=== PATIENT | male | born 1945 | race Caucasian/White ===

== ENCOUNTER → 2018-04-02 | Outpatient (CLI) | payer MEDICARE, BC ==
[~2018-04-02] MED LIST: ATEN-104 PO; ATEN25TA PO; OXYC-302 PO
== END | disposition home or self-care (01) ==
LOC: STAR 09:05
PROVIDERS: ATTEND Student in an Organized Health Care Education/Training Program
DX: Z01.818 Encounter for other preprocedural examination (principal); N20.0 Calculus of kidney; R00.1 Bradycardia, unspecified
CPT/HCPCS: 93005

== ENCOUNTER 2018-04-14 06:56 | Day surgery (SDC) | payer MEDICARE, BC ==
[~2018-04-14] VITALS: Ht 185.4 cm; Wt 98.8 kg
[2018-04-14] MEDS ORDERED: LACTATED RINGERS 1,000 ML IV SCH (07:14)
[2018-04-14 07:39] VITALS: BP 139/83
[2018-04-14] MEDS ORDERED: FENTANYL PF 250 MCG/5ML ONE (08:57)
[2018-04-14] MEDS ORDERED: MIDAZOLAM 1 MG/ML, 2ML ONE (08:57)
[2018-04-14] MEDS ORDERED: CEFAZOLIN 1,000 MG ONE (09:02)
[2018-04-14] MEDS ORDERED: LIDOCAINE 2% 100MG/5ML SYRINGE ONE (09:42)
[2018-04-14] MEDS ORDERED: ONDANSETRON 2MG/ML, 2ML ONE (09:42)
[2018-04-14] MEDS ORDERED: ROCURONIUM 10MG/ML,5ML ONE (09:42)
[2018-04-14] MEDS ORDERED: DEXAMETHASONE 4 MG/ML, 1ML ONE (09:42)
[2018-04-14] MEDS ORDERED: PROPOFOL 10 MG/ML, 20ML ONE (09:42)
[2018-04-14] MEDS ORDERED: LABETALOL 5MG/ML, 20ML IV PRN (10:00)
[2018-04-14] MEDS ORDERED: OXYcodone 5 MG/5 ML ORAL.SOL UDC PO PRN (10:00)
[2018-04-14] MEDS ORDERED: ACETAMINOPHEN 325 MG TABLET PO PRN (10:00)
[2018-04-14] MEDS ORDERED: HYDROmorphone 1 MG/ML, 1ML IV PRN (10:00)
[2018-04-14] MEDS ORDERED: MEPERIDINE/PF 25MG/0.5ML IVPush PRN (10:00)
[2018-04-14] MEDS ORDERED: hydrALAzine 20 MG/ML, 1ML IV PRN (10:00)
[2018-04-14] MEDS ORDERED: FENTANYL PF 100 MCG/2ML IV PRN (10:00)
[2018-04-14] MEDS ORDERED: HALOPERIDOL 5 MG/ML IV PRN (10:00)
[2018-04-14] MEDS ORDERED: OMNIPAQUE 350 MG/ML, 50 ML BOTTLE ONE (10:10)
[2018-04-14] MEDS ORDERED: PHENAZOPYRIDINE 100 MG TABLET PO PRN (12:00)
== END 2018-04-14 14:55 | disposition home or self-care (01) ==
LOC: OUT 06:56
PROVIDERS: ATTEND Student in an Organized Health Care Education/Training Program
DX: N20.0 Calculus of kidney (principal); N40.0 Benign prostatic hyperplasia without lower urinary tract symptoms; I10 Essential (primary) hypertension; Z87.891 Personal history of nicotine dependence; Z98.890 Other specified postprocedural states; Z79.899 Other long term (current) drug therapy
CPT/HCPCS: 52332; 74420; C1726; C1758; C1769; C2617; J0690; J1100; J2250; J2405; J2704; J3010; J7120; Q9967